=== PATIENT | female | born 1960 ===

== ENCOUNTER 2016-04-09 21:30 | Emergency (ER) | payer OTHER ==
[2016-04-09] MEDS ORDERED: Ibuprofen TAB* 400 MG PO ONE (22:47)
[2016-04-09] MEDS ORDERED: Polymyx/Trimethoprim OPTH* 10 ML BTL BOTH EYES ONE (22:48)
--- NOTE | 2016-04-09 22:57 | ED ---
Throat Pain/Nasal Congestion - HPI Summary HPI Summary: Patient is visiting from [place] and has been staying in a hotel. She awoke this AM with itchy eyes and as the day progressed she started to have pus-like drainage from her eyes. She denies vision changes, headache, fever, or photophobia. - History of Current Complaint Chief Complaint: EDEyeProblem Time Seen by Provider: 04/09/16 22:13 Hx Obtained From: Patient Onset/Duration: Gradual Onset Severity: Severe Associated Signs And Symptoms: Positive: Negative Cough: None - Allergies/Home Medications Allergies/Adverse Reactions: Allergies Allergy/AdvReac Type Severity Reaction Status Date / Time No Known Allergies Allergy Verified 04/09/16 21:37 PMH/Surg Hx/FS Hx/Imm Hx Previously Healthy: Yes Infectious Disease History: No Infectious Disease History: Denies: Traveled Outside the [place] in Last 30 Days - Family History Known Family History: Positive: None - Social History Occupation: Employed Full-time Lives: With Family Alcohol Use: Occasionally Substance Use Type: Reports: None Smoking Status (MU): Never Smoked Tobacco Review of Systems Negative: Fever, Chills Positive: Drainage - bilateral , Erythema - bilateral. Negative: Photophobia, Blurred Vision, Diplopia Negative: Sore Throat, Ear Ache Negative: Cough Negative: Headache All Other Systems Reviewed And Are Negative: Yes Physical Exam Triage Information Reviewed: Yes Vital Signs On Initial Exam: Initial Vitals Temp Pulse Resp BP Pulse Ox 98 F 85 18 149/90 100 04/09/16 21:34 04/09/16 21:34 04/09/16 21:34 04/09/16 21:34 04/09/16 21:34 Vital Signs Reviewed: Yes Appearance: Positive: Well-Appearing, Pain Distress, Obese Skin: Positive: Warm, Skin Color Reflects Adequate Perfusion, Dry, Soft Head/Face: Positive: Normal Head/Face Inspection Eyes: Positive: EOMI, MUNIR, Conjunctiva Inflammed - bilateral, Discharge - pus- like bilaterally ENT: Positive: Hearing grossly normal, Pharynx normal Neck: Positive: Supple, Nontender, No Lymphadenopathy Respiratory/Lung Sounds: Positive: Breath Sounds Present Cardiovascular: Positive: RRR Neurological: Positive: Sensory/Motor Intact, Alert, Oriented to Person Place, Time, Normal Gait Psychiatric: Positive: Affect/Mood Appropriate AVPU Assessment: Alert Diagnostics - Vital Signs Vital Signs Temp Pulse Resp BP Pulse Ox 04/09/16 21:34 98 F 85 18 149/90 100 - Laboratory Lab Statement: Any lab studies that have been ordered have been reviewed, and results considered in the medical decision making process. EENT Course/Dx - Differential Diagnoses Differential Diagnoses: Conjunctivitis, Corneal Abrasion, Detached Retina, Periorbital/Orbital Cellulitis, Retinal Artery Occlusion - Diagnoses Provider Diagnoses: Acute conjunctivitis, bilateral Discharge - Discharge Plan Condition: Stable Disposition: HOME Patient Education Materials: Conjunctivitis (ED) Additional Instructions: Please use ibuprofen 600mg three times daily with meals for the next 3-5 days to decrease pain and swelling. Apply one drop in each eye every 3 hours until 24 hours after symptoms have resolved. Wash your hands often to avoid spreading the disease. Follow-up with your PCP as needed. Return to an emergency department if symptoms worsen.
[2016-04-09 23:15] VITALS: BP 145/80
== END 2016-04-09 23:16 | disposition home or self-care (01) ==
LOC: ED 21:30
DX: H10.33 Unspecified acute conjunctivitis, bilateral (principal)
CPT/HCPCS: 99282; A9270-GY